=== PATIENT | male | born 1985 | race African-American/Black ===

== ENCOUNTER 2021-07-17 00:47 | Inpatient (IN) | payer MEDICAID ==
[~2021-07-17] VITALS: Ht 193 cm; Wt 101.6 kg
[2021-07-17 02:23] LABS: Basophils # (auto) 0.1 10 ^3/uL (0-0.2); Basophils % (auto) 0.9 % (0.0-2.0); Eosinophils # (auto) 0.1 10 ^3/uL (0-0.8); Eosinophils % (auto) 0.4 % (0.0-7.0); Hematocrit 45.5 % (41.0-53.0); Hemoglobin 15.6 g/dL (13.5-17.5); Lymphocytes # (auto) 4.8 10 ^3/uL (0.4-5.4); Lymphocytes % (auto) 34.8 % (10.0-50.0); Mean Corpuscular Hemoglobin 29.7 pg (28.0-32.0); Mean Corpuscular Hgb Conc. 34.2 g/dL (32.0-36.0); Mean Corpuscular Volume 87.1 fL (80.0-100.0); Monocytes # (auto) 1.3 10 ^3/uL (0-1.3); Monocytes % (auto) 9.7 % (0.0-12.0); Neutrophils # (auto) 7.4 10 ^3/uL (1.6-8.6); Neutrophils % (auto) 54.2 % (37.0-80.0); Nucleated Red Blood Cells % 0.1 %; Red Blood Cells 5.23 10^6/uL (4.5-5.90); Red Cell Distribution Width 12.2 % (11.8-14.3); White Blood Cell 13.7 10^3/uL (4.4-10.8)
[2021-07-17 02:34] LABS: INR 1.1 (0.9-1.15)
[2021-07-17 02:42] LABS: Lactic Acid w/Reflex 2.3 mmol/L (0.4-2.0)
[2021-07-17 02:51] LABS: Albumin 4.4 g/dL (3.4-5.0); BUN/Creatinine Ratio 13.9; Calcium 9.5 mg/dL (8.5-10.1); Magnesium 2.8 mg/dL (1.6-2.6); Potassium 3.4 mmol/L (3.5-5.1)
[2021-07-17 03:01] LABS: Bilirubin, Total 3.5 mg/dL (0.2-1.0); Total Protein 8.6 g/dL (6.4-8.2)
[2021-07-17] MEDS ORDERED: SODIUM CHLORIDE 0.9% 1,000 ML IV ONE (03:15)
[2021-07-17] MEDS ORDERED: METOCLOPRAMIDE HCL 5MG/ml INJ 2ml VIAL IV ONE (03:15)
[2021-07-17 05:10] LABS: Urine Amorphous Crystal MANY /hpf (None Seen); Urine Bacteria FEW /hpf (None Seen); Urine Blood Negative /uL (Negative); Urine Hyaline Cast MANY /lpf (0 - 2); Urine Mucus MODERATE (None Seen); Urine Specific Gravity 1.041 (1.001-1.035); Urine WBC 15 /hpf (0 - 3)
[2021-07-17] MEDS ORDERED: CIPROFLOXACIN 400MG/200ML 200 ML IV ONE (06:00)
[2021-07-17] MEDS ORDERED: metroNIDAZOLE 500MG/100ML 100 ML IV ONE (06:00)
[2021-07-17] MEDS ORDERED: HYDROmorphone HCL 2 MG/ML VL IV ONE (06:00)
[2021-07-17] MEDS ORDERED: ACETAMINOPHEN 325 MG TAB PO PRN (06:30)
[2021-07-17] MEDS ORDERED: HYDROcodone-ACET 5/325MG TAB PO PRN (06:30)
[2021-07-17] MEDS ORDERED: SODIUM CHLORIDE 0.9% 1,000 ML IV SCH (06:30)
[2021-07-17] MEDS ORDERED: ONDANSETRON HCL 4 MG/2 ML VIAL IV PRN (06:30)
[2021-07-17] MEDS ORDERED: MORPHINE SULFATE 4 MG/ML SYR/VIAL IV PRN (06:30)
[2021-07-17] MEDS ORDERED: SODIUM CHLORIDE 0.9% 2,000 ML IV ONE (06:45)
[2021-07-17] MEDS ORDERED: NITROGLYCERIN 0.4 MG SL TAB SL PRN (07:00)
[2021-07-17] MEDS ORDERED: MORPHINE SULFATE INJECTION 2 MG/ML SYRG IV PRN (07:00)
[2021-07-17 08:47] LABS: Basophils # (auto) 0.1 10 ^3/uL (0-0.2); Basophils % (auto) 0.4 % (0.0-2.0); Eosinophils # (auto) 0.1 10 ^3/uL (0-0.8); Hematocrit 42.3 % (41.0-53.0); Hemoglobin 14.3 g/dL (13.5-17.5); Lymphocytes # (auto) 4.6 10 ^3/uL (0.4-5.4); Lymphocytes % (auto) 32.6 % (10.0-50.0); Mean Corpuscular Hemoglobin 29.7 pg (28.0-32.0); Mean Corpuscular Hgb Conc. 33.8 g/dL (32.0-36.0); Mean Corpuscular Volume 87.7 fL (80.0-100.0); Monocytes # (auto) 1.4 10 ^3/uL (0-1.3); Monocytes % (auto) 10.3 % (0.0-12.0); Neutrophils # (auto) 7.8 10 ^3/uL (1.6-8.6); Neutrophils % (auto) 55.7 % (37.0-80.0); Nucleated Red Blood Cells % 0.1 %; Red Blood Cells 4.82 10^6/uL (4.5-5.90); Red Cell Distribution Width 12.1 % (11.8-14.3); White Blood Cell 14.1 10^3/uL (4.4-10.8)
[2021-07-17 09:00] VITALS: BP 137/75
[2021-07-17 09:00] LABS: Calcium 8.8 mg/dL (8.5-10.1); Potassium 3.2 mmol/L (3.5-5.1)
[2021-07-17 09:04] LABS: BUN/Creatinine Ratio 17.6; Bilirubin, Total 2.9 mg/dL (0.2-1.0); Total Protein 7.8 g/dL (6.4-8.2)
[2021-07-17] MEDS: cefTRIAXone 1GM/50ML D5W 50 ML IV SCH (10:40)
[2021-07-17] MEDS: FAMOTIDINE (10MG/ML) 2ML VL IV SCH (10:40)
[2021-07-17 13:00] VITALS: BP 126/66
[2021-07-17] MEDS: SODIUM CHLORIDE 0.9% 1,000 ML IV SCH (13:15)
[2021-07-17] MEDS ORDERED: POTASSIUM CHL 20MEQ/100ML 100 ML IV ONE (14:45)
[2021-07-17] MEDS: metroNIDAZOLE 500MG/100ML 100 ML IV SCH ×2 (15:17→21:19)
[2021-07-17 17:00] VITALS: BP 136/70
[2021-07-17 22:25] VITALS: BP 122/62
[2021-07-18] MEDS: SODIUM CHLORIDE 0.9% 1,000 ML IV SCH ×2 (04:20→17:51)
[2021-07-18 05:00] VITALS: BP 116/55
[2021-07-18] MEDS: metroNIDAZOLE 500MG/100ML 100 ML IV SCH ×2 (05:36→14:37)
[2021-07-18 05:52] LABS: Basophils # (auto) 0.1 10 ^3/uL (0-0.2); Eosinophils # (auto) 0.2 10 ^3/uL (0-0.8); Eosinophils % (auto) 1.9 % (0.0-7.0); Hematocrit 36.8 % (41.0-53.0); Hemoglobin 12.5 g/dL (13.5-17.5); Lymphocytes # (auto) 3.7 10 ^3/uL (0.4-5.4); Lymphocytes % (auto) 40.8 % (10.0-50.0); Mean Corpuscular Hemoglobin 29.8 pg (28.0-32.0); Mean Corpuscular Hgb Conc. 33.9 g/dL (32.0-36.0); Mean Corpuscular Volume 87.8 fL (80.0-100.0); Monocytes # (auto) 0.8 10 ^3/uL (0-1.3); Monocytes % (auto) 8.3 % (0.0-12.0); Neutrophils # (auto) 4.4 10 ^3/uL (1.6-8.6); Nucleated Red Blood Cells % 0.3 %; Red Blood Cells 4.19 10^6/uL (4.5-5.90); Red Cell Distribution Width 12.3 % (11.8-14.3); White Blood Cell 9.1 10^3/uL (4.4-10.8)
[2021-07-18 06:08] LABS: Albumin 3.2 g/dL (3.4-5.0); Calcium 8.3 mg/dL (8.5-10.1); Magnesium 2.8 mg/dL (1.6-2.6); Potassium 3.8 mmol/L (3.5-5.1)
[2021-07-18 06:10] LABS: BUN/Creatinine Ratio 16.7; CRP High Sensitivity 0.52 mg/dL (< 0.3)
[2021-07-18 06:25] LABS: Total Protein 6.7 g/dL (6.4-8.2)
[2021-07-18 09:00] VITALS: BP 119/71
[2021-07-18] MEDS: FAMOTIDINE (10MG/ML) 2ML VL IV SCH (09:06)
[2021-07-18] MEDS: cefTRIAXone 1GM/50ML D5W 50 ML IV SCH (09:06)
[2021-07-18 13:00] VITALS: BP 121/76
[2021-07-18 17:00] VITALS: BP 124/77
== END 2021-07-18 19:05 | disposition home or self-care (01) ==
LOC: ER 00:47 → OVERFLOW 06:50 → WEST WING 09:57
PROVIDERS: ADMIT Nurse Practitioner Family; ATTEND Internal Medicine
DX: K80.42 Calculus of bile duct with acute cholecystitis without obstruction (principal); N17.0 Acute kidney failure with tubular necrosis; D72.829 Elevated white blood cell count, unspecified; E87.6 Hypokalemia; F12.90 Cannabis use, unspecified, uncomplicated; R65.10 Systemic inflammatory response syndrome (SIRS) of non-infectious origin without acute organ dysfunction; R80.9 Proteinuria, unspecified; Z83.2 Family history of diseases of the blood and blood-forming organs and certain disorders involving the immune mechanism
CPT/HCPCS: 36415; 74018; 74176; 78226; 80053; 81001; 83036; 83605; 83690; 83735; 84484; 85025; 85610; 85652; 86141; 86160; 86225; 86235; 87040; 87426; 96361; 96365; 96366; 96368; 96375; G0378; J0696; J3480; J3490

== ENCOUNTER 2023-07-07 08:52 | Emergency (ER) | payer MEDICAID ==
[~2023-07-07] VITALS: Ht 190.5 cm; Wt 101.5 kg
[2023-07-07] MEDS ORDERED: HYDR-4798 PO (09:49)
[2023-07-07] MEDS ORDERED: HYDROmorphone HCL 2 MG/ML VL/or syr IM ONE (10:00)
[2023-07-07] MEDS ORDERED: ONDANSETRON ODT 4 MG TAB PO ONE (10:00)
[2023-07-07 12:30] VITALS: TEMP 98.3; O2SAT 98
[2023-07-07 12:31] VITALS: BP 100/48; PULSE 64; RESP 17
[2023-07-07] MEDS ORDERED: HYDR-4795 PO (16:09)
== END 2023-07-07 12:33 | disposition home or self-care (01) ==
LOC: ER 08:52
DX: S42.031A Displaced fracture of lateral end of right clavicle, initial encounter for closed fracture (principal); S52.502A Unspecified fracture of the lower end of left radius, initial encounter for closed fracture; S43.101A Unspecified dislocation of right acromioclavicular joint, initial encounter; S09.90XA Unspecified injury of head, initial encounter; Z79.899 Other long term (current) drug therapy; Y04.2XXA Assault by strike against or bumped into by another person, initial encounter; Y93.89 Activity, other specified; Y92.89 Other specified places as the place of occurrence of the external cause; Y99.8 Other external cause status
CPT/HCPCS: 29105; 29125; 70450; 73030; 73110; 96372; 99285; J1170; Q0162

== ENCOUNTER 2024-11-17 22:00 | Emergency (ER) | payer MEDICAID ==
[~2024-11-17] VITALS: Ht 190.5 cm; Wt 104.0 kg
[~2024-11-17 22:00] MED LIST: HYDR-4795 PO; HYDR-4798 PO
[2024-11-17] MEDS: METOCLOPRAMIDE HCL 5MG/ml INJ 2ml VIAL IV ONE (22:35)
[2024-11-17] MEDS: SODIUM CHLORIDE 0.9% 1,000 ML IV ONE (22:35)
--- NOTE | 2024-11-17 22:55 | ED.PDOC ---
GI ASSESSMENT HPI Comments Pt C/O left sided abd pain with N/V starting this AM, pt denies any sick contacts reports this has happened before and it was "a stomach infection" patient also reports frequent use of marijuana. Denies difficulty breathing, shortness of breath, chest pain, diarrhea, or recent travel Chief Complaint: Abdominal Pain Time Seen by MD: 22:07 Primary Care Provider: none Reviewed Notes: Nurses Notes, Medications, Allergies Allergies: Coded Allergies: NO KNOWN ALLERGIES (Unverified , 07/17/21) Home Meds Active Scripts Ondansetron Odt 4MG Tab (ZOFRAN PO) 4 Mg Tb, 4 MG PO TID PRN for 5 Days, #15 TAB ODT TAB-DISSOLVE IN MOUTH, THEN SWALLOW Prov:DANIEL CARCAMO 11/18/24 Hydrocodone-Acetaminophen (Hydrocodone Bitartrate/AC 7.5-325 mg) 1 Tab Tab, 1 TAB PO Q6HP PRN for 7 Days, #28 TAB Prov:LUCIUS GREEN MD 07/07/23 Hydrocodone-Acetaminophen (Hydrocodone Bitartrate/AC 10-325 mg) 1 Tab Tab, 1 TAB PO Q6HP PRN for 7 Days, #28 TAB Prov:LUCIUS GREEN MD 07/07/23 Information Source: Patient Mode of Arrival: Ambulatory Past Medical History PAST MEDICAL HISTORY: Denies Surgical History: Denies all surgeries Family History Family History: Unknown Social History Smoker: Non-Smoker Alcohol: Occasionally Drugs: Marijuana Lives In: Home Constitutional: denies: chills, diaphoresis, fatigue, fever, malaise, sweats, weakness, others EENTM: denies: blurred vision, double vision, ear bleeding, ear discharge, ear drainage, ear pain, ear ringing, eye pain, eye redness, hearing loss, mouth pain, mouth swelling, nasal discharge, nose bleeding, nose congestion, nose pain, photophobia, tearing, throat pain, throat swelling, voice changes, others Respiratory: denies: cough, hemoptysis, orthopnea, SOB at rest, shortness of breath, SOB with excertion, stridor, wheezing, others Cardiovascular: denies: chest pain, dizzy spells, diaphoresis, Dyspnea on exertion, edema, irregular heart beat, left arm pain, lightheadedness, palpitations, PND, syncope, others Gastrointestinal: reports: abdominal pain, nausea, poor fluid intake, vomiting; denies: abdomen distended, blood streaked bowels, constipated, diarrhea, dysphagia, difficulty swallowing, hematemesis, melena, poor appetite, rectal bleeding, rectal pain, others Genitourinary: denies: burning, dysuria, flank pain, frequency, hematuria, incontinence, penile discharge, penile sore, pain, testicle pain, testicle swelling, urgency, others Neurological: denies: dizziness, fainting, headache, left sided numbness, left sided weakness, numbness, paresthesia, pre-existing deficit, right sided numbness, right sided weakness, seizure, speech problems, tingling, tremors, weakness, others Musculoskeletal: denies: back pain, gout, joint pain, joint swelling, muscle pain, muscle stiffness, neck pain, others Integumetry: denies: bruises, change in color, change in hair/nails, dryness, laceration, lesions, lumps, rash, wounds, others Allergic/Immunocompromised: denies: Difficulty Healing, Frequent Infections, Hives, Itching, others Hematologic/Lymphatic: denies: anemia, blood clots, easy bleeding, easy bruising, swollen glands, others Endocrine: denies: excessive hunger, excessive sweating, excessive thirst, excessive urination, flushing, intolerance to cold, intolerance to heat, unexplained weight gain, unexplained weight loss, others Psychiatric: denies: anxiety, bipolar disorder, depression, hopeless, panic disorder, schizophrenia, sleepless, suicidal, others Physical Exam General Appearance: No Apparent Distress, Normal HEENT: Pharynx Normal Neck: Full Range of Motion, Non-Tender Respiratory: Lungs Clear, No Respiratory Distress, Normal Breath Sounds Cardiovascular: No Edema, No JVD, No Murmur, No Gallop, Normal Peripheral Pulses, Regular Rate/Rhythm Breast Exam: Deferred Gastrointestinal: Abnormal Bowel Sounds (Hyperactive x4 quadrant), LLQ (Tenderness on palpation), No Organomegaly, No Pulsatile Mass, Soft Genitalia: Deferred Pelvic: Deferred Rectal: Deferred Extremities: No calf tenderness, Normal capillary refill, Normal inspection, Normal range of motion, Non-tender, No pedal edema Musculoskeletal : Apperance: Normal Neurologic: Alert, hrbp II-XII nml as Tested, No Motor Deficits, Normal Affect, Normal Mood, No Sensory Deficits Cerebellar Function: Normal Reflexes: Normal Skin: Dry, Normal Color, Warm Lymphatic: No Adenopathy Was a procedure done? Was a procedure done?: No GI differential Dx Differential Diagnosis: Appendicitis, Gastritis/PUD, Gastroenteritis, Inf lammatory BD, Electrolyte Imbalance, Food Poisoning, Bacterial, Parasitic, Viral X-Ray, Labs, Meds, VS Vital Signs Date Time Temp Pulse Resp B/P (MAP) Pulse Ox O2 Delivery O2 Flow Rate FiO2 11/18/24 02:10 98.3 58 20 129/81 (97) 98 98.3 11/17/24 22:16 97.2 60 20 126/70 (88) 97 Lab Test 11/17/24 22:46 Range/Units White Blood Count 14.0 H 4.4-10.8 10^3/uL Red Blood Count 4.80 4.5-5.90 10^6/uL Hemoglobin 13.7 13.5-17.5 g/dL Hematocrit 42.4 41.0-53.0 % Mean Corpuscular Volume 88.4 80.0-100.0 fL Mean Corpuscular Hemoglobin 28.4 28.0-32.0 pg Mean Corpuscular Hemoglobin Concent 32.2 32.0-36.0 g/dL Red Cell Distribution Width 12.8 11.8-14.3 % Platelet Count 282 140-450 10^3/uL Mean Platelet Volume 8.9 6.9-10.8 fL Neutrophils (%) (Auto) 86.8 H 37.0-80.0 % Lymphocytes (%) (Auto) 9.0 L 10.0-50.0 % Monocytes (%) (Auto) 3.7 0.0-12.0 % Eosinophils (%) (Auto) 0.0 0.0-7.0 % Basophils (%) (Auto) 0.5 0.0-2.0 % Neutrophils # (Auto) 12.2 H 1.6-8.6 10 ^3/uL Lymphocytes # (Auto) 1.3 0.4-5.4 10 ^3/uL Monocytes # (Auto) 0.5 0-1.3 10 ^3/uL Eosinophils # (Auto) 0 0-0.8 10 ^3/uL Basophils # (Auto) 0.1 0-0.2 10 ^3/uL Nucleated Red Blood Cells 0.1 % Sodium Level 142 136-145 mmol/L Potassium Level 4.0 3.5-5.1 mmol/L Chloride Level 108 H 98-107 mmol/L Carbon Dioxide Level 17 L 20-31 mmol/L Anion Gap 17 H 5-15 Blood Urea Nitrogen 12 9-23 mg/dL Creatinine 1.10 0.700-1.30 mg/dL Glomerular Filtration Rate Calc 88 >90 mL/min BUN/Creatinine Ratio 10.9 10.0-20.0 Serum Glucose 139 H 74-106 mg/dL Calcium Level 11.0 H 8.7-10.4 mg/dL Total Bilirubin 2.0 H 0.2-1.0 mg/dL Aspartate Amino Transferase (AST) 43 H 13-40 U/L Alanine Aminotransferase (ALT) 72 H 7-40 U/L Alkaline Phosphatase 83 46-116 U/L Total Protein 8.0 5.7-8.2 g/dL Albumin 5.2 H 3.2-4.8 g/dL Lipase 54 H 12-53 U/L Current Medications Medications (Trade) Dose Ordered Sig/Pawel Route Start Time Stop Time Status Last Admin Metoclopramide HCl (Reglan Injection) 5 mg ONCE ONCE IV 11/17/24 22:30 11/17/24 22:31 DC 11/17/24 22:35 Sodium Chloride 1,000 ml @ 1,000 mls/hr Q1H ONCE IV 11/17/24 22:30 11/17/24 23:29 DC 11/17/24 22:35 Haloperidol Lactate (Haldol) 2.5 mg ONCE ONCE IM 11/17/24 22:45 11/17/24 22:46 DC 11/17/24 22:59 X-Ray, Labs, Meds, VS Comment CT abdomen/pelvis shows cholelithiasis, normal gallbladder no other findings. Patient reports pain has resolved, nausea vomiting controlled patient tolerated p.o. fluids requesting discharge at this time. [facility] pharmacy on file to maintain fluids and hydration. Advised patient to follow up with his PCP in 1-2 days. Advised on ER return precautions patient indicates understanding and agrees with discharge plan of care. Time of 1ST Reevaluation: 00:03 Reevaluation 1ST: Improved Patient Education/Counseling: Diagnosis, Treatment, Prognosis, Need For Follow Up Family Education/Counseling: No Family Present Departure 1 Departure Time of Disposition: 01:58 Impression: Primary Impression: Gastroenteritis Additional Impression: Nausea and vomiting Qualified Codes: R11.2 - Nausea with vomiting, unspecified Disposition: 01 HOME / SELF CARE / HOMELESS Condition: Stable e-Prescriptions Ondansetron Odt 4MG Tab (ZOFRAN PO) 4 Mg Tb 4 MG PO TID PRN for 5 Days, #15 TAB ODT TAB-DISSOLVE IN MOUTH, THEN SWALLOW Prov: DANIEL CARCAMO 11/18/24 Discharged With: Significant Other Critical Care Note Critical Care Time?: No Stability Stability form required: DANIEL Cifuentes Nov 17, 2024 22:55
[2024-11-17] MEDS: HALOPERIDOL LACTATE 5 MG/ML INJ VIAL IM ONE (22:59)
[2024-11-17 23:01] LABS: Basophils # (auto) 0.1 10 ^3/uL (0-0.2); Basophils % (auto) 0.5 % (0.0-2.0); Eosinophils # (auto) 0 10 ^3/uL (0-0.8); Hematocrit 42.4 % (41.0-53.0); Hemoglobin 13.7 g/dL (13.5-17.5); Lymphocytes # (auto) 1.3 10 ^3/uL (0.4-5.4); Mean Corpuscular Hemoglobin 28.4 pg (28.0-32.0); Mean Corpuscular Hgb Conc. 32.2 g/dL (32.0-36.0); Mean Corpuscular Volume 88.4 fL (80.0-100.0); Monocytes # (auto) 0.5 10 ^3/uL (0-1.3); Monocytes % (auto) 3.7 % (0.0-12.0); Neutrophils # (auto) 12.2 10 ^3/uL (1.6-8.6); Neutrophils % (auto) 86.8 % (37.0-80.0); Nucleated Red Blood Cells % 0.1 %; Platelet Count (auto) 282 10^3/uL (140-450); Red Cell Distribution Width 12.8 % (11.8-14.3)
[2024-11-17 23:12] LABS: Alanine Aminotransferase 72 U/L (7-40); Albumin 5.2 g/dL (3.2-4.8); Alkaline Phosphatase 83 U/L (46-116); Anion Gap 17 (5-15); Aspartate Aminotransferase 43 U/L (13-40); BUN/Creatinine Ratio 10.9 (10.0-20.0); Blood Urea Nitrogen 12 mg/dL (9-23); Carbon Dioxide 17 mmol/L (20-31); Chloride 108 mmol/L (98-107); Glucose 139 mg/dL (74-106); Lipase 54 U/L (12-53); Sodium 142 mmol/L (136-145)
--- NOTE | 2024-11-18 01:42 | DVH ---
CLINICAL HISTORY: Lower Mid abdominal pain TECHNIQUE: CT of the abdomen and pelvis was performed without intravenous contrast. This exam was per formed according to our departmental dose optimization program. Up-to-date CT equipment and radiation dose reduction techniques are utilized as appropriate. COMPARISON: CT ABD PELVIS WO CONTRAST on DOS: 07/17/21 FINDINGS: Lower Thorax: Unremarkable. Liver and Biliary system: Cholelithiasis in a normal caliber gallbladder. Otherwise unremarkable. Spleen: Unremarkable. Adrenal Glands and Kidneys: Unremarkable. Pancreas and Retroperitoneum: Unremarkable. Aorta and Major Vessels: Unremarkable. Bowel, Mesentery and Peritoneal space: Unremarkable. Pelvis: Unremarkable. Abdominal wall and Osseous Structures: Small fat containing umbilical hernia. No destructive osseous lesion. IMPRESSION: 1. No noncontrast evidence of acute abnormality. 2. Cholelithiasis
[2024-11-18] MEDS ORDERED: ZOFR4T PO (02:01)
[2024-11-18 02:10] VITALS: BP 129/81; PULSE 58; RESP 20; TEMP 98.3; O2SAT 98
[2024-11-18 02:56] LABS: Urine Bacteria None Seen /hpf (None Seen)
[2024-11-18 03:08] LABS: Urine Blood TRACE /uL (Negative); Urine Clarity Clear (Clear); Urine Color Light-Yellow (Yellow); Urine Protein, UAD Negative (Negative); Urine Specific Gravity 1.023 (1.001-1.035); Urine Squamous Epithelial Cell None Seen /hpf (<5); Urine Urobilinogen Normal (Negative); Urine WBC < 1 /HPF (0-3); Urine pH 7.5 (5.0-9.0)
[2024-11-18 04:35] LABS: Amphetamine Screen, Urine Neg (NEGATIVE); Barbiturate Scree,Urine Neg (NEGATIVE); Benzodiazephine Screen, Urine Neg (NEGATIVE); Cannabinoid Screen, Urine Pos (NEGATIVE); Cocaine Screen, Urine Neg (NEGATIVE); Opiate Scree,Urine Neg (NEGATIVE); Phencyclidine Screen, Urine Neg (NEGATIVE)
== END 2024-11-18 02:12 | disposition home or self-care (01) ==
LOC: ER 22:00
DX: K52.9 Noninfective gastroenteritis and colitis, unspecified (principal); F12.10 Cannabis abuse, uncomplicated; Z79.899 Other long term (current) drug therapy
CPT/HCPCS: 36415; 74176; 80053; 80307; 81001; 83690; 85025; 96361; 96372; 96374; 99285; J1630; J2765; J7030